=== PATIENT | female | born 1975 | race Two or more races ===

== ENCOUNTER 2024-09-24 15:01 | Emergency (ER) | payer MEDICAID, SELFPAY ==
[2024-09-24 15:02] VITALS: BMI 26.4
[2024-09-24 15:26] VITALS: BP 103/60; PULSE 82; RESP 16; TEMP 36.8; O2SAT 95; BMI 26.4
--- NOTE | 2024-09-24 15:30 | XR_ITS ---
Examination: Pelvic ultrasound, transabdominal, complete Technique: Transabdominal ultrasound of the pelvis performed using grayscale imaging Date and time of exam: September 24, 2024 1654 hrs. Indications: Pelvic pain and vaginal bleeding beginning 2 days ago Findings: Uterus 9.0 cm with multiple solid uterine masses, the largest in the posterior fundus 3.1 x 2.4 x 2.2 cm Endometrial stripe 12 mm Right ovary 3.5 cm arterial flow 14 mm follicular cyst Left ovary 2.2 cm arterial flow Impression: Multiple uterine areas of fibroid degeneration, the largest in the fundus of uterus 3.1 x 2.4 x 2.2 cm
--- NOTE | 2024-09-24 15:41 | PD.EDVAGBL ---
ED OB Contraction Preg RMI/HPI General Chief complaint: Vaginal Bleeding Stated complaint: Heavy vaginal bleeding x 1 day, 10 pads/day Time Seen by Provider: 09/24/24 15:07 Arrival date/time: 09/24/24 15:01 RME / HPI RME / HPI Narrative: 49-year-old female presents with complaint of heavy vaginal bleeding for 1 day. Patient states that she had not gotten her period for several months, and then she started having vaginal bleeding yesterday. She reports lightheadedness. States that she is changing pads approximately every 2 hours. Reports associated cramping pelvic pain. No fevers. No syncope. No chest pain. No shortness of breath. Related Data Previous Rx's ?Medication ?Instructions ?Recorded diphenhydramine HCl 25 mg capsule 25 mg PO Q6H PRN allergy symptoms 10/25/20 (Benadryl) #10 caps diphenhydramine HCl 50 mg capsule 50 mg PO TID PRN allergic reaction 09/05/22 #20 caps Allergies Allergy/AdvReac Type Severity Reaction Status Date / Time NKA* Allergy Uncoded 03/01/13 13:05 Review of Systems Review of Systems Systems Reviewed: All systems reviewed, normal except as documented ED Exam Narrative Physical exam: Constitutional: no acute distress, age appropriate, non-toxic Eyes: PERRL, conjunctivae w/o pallor, EOMI HENT: normocephalic, atraumatic. Oral mucosa moist Respiratory Effort: no stridor, effort normal, no retractions Breath sounds: Clear bilaterally; No rales, No rhonchi, No wheezing Cardiovascular: regular rhythm, S1 and S2 normal, no murmur Abdominal: soft; non-distended, non-tender Musculoskeletal: no deformities, no swelling, no LE edema Skin: warm, dry; No rash Neurology: alert, oriented X 4. Normal gait. Moves all extremities spontaneously. Psychology: cooperative, normal mood Course Quality Measures none Orders Category Date Time Status US pelvic complete Stat Exams 09/24/24 15:30 Completed CBC Stat Lab 09/24/24 16:01 Completed CMP [Comprehensive Metabolic Panel] Stat Lab 09/24/24 16:01 Completed HCG,Qualitative Serum Stat Lab 09/24/24 16:01 Completed Type and Screen Stat Lab 09/24/24 16:01 Completed Urinalysis Stat Lab 09/24/24 16:12 Completed Acetaminophen Tab [Tylenol ES Tab] Med 09/24/24 15:30 Discontinued 1,000 mg PO X1 ONE Ibuprofen Tab [Motrin Tab] Med 09/24/24 15:30 Discontinued 600 mg PO X1 ONE Vital Signs Vital signs: Vital Signs Temperature 98.3 F 09/24/24 15:26 Pulse Rate 82 09/24/24 15:26 Respiratory Rate 16 09/24/24 15:26 Blood Pressure 103/60 09/24/24 15:26 Pulse Oximetry (%) 95 09/24/24 15:26 Oxygen Delivery Method Room Air 09/24/24 15:26 Vaginal Bleeding MDM Narrative MDM Narrative: 49-year-old female presents with vaginal bleeding. Differential diagnoses include miscarriage, ectopic , dysfunctional uterine bleeding, fibroids, anemia Labs reassuring?hemoglobin is normal. hCG is negative so do not suspect miscarriage or ectopic . Uterine fibroids present on ultrasound. Patient counseled to follow-up with [facility]. Return to ED precautions given. Patient data External records reviewed:: [facility] previous records Clinical information provided by:: patient Social determinants that could affect healthcare access:: none Patient has the following chronic illnesses:: None How is presenting disease/condition affected by chronic disease/condition?: no chronic disease Evaluation data The following diagnostics were reviewed and interpreted by me:: lab results and radiology exam(s) Lab and/or radiology exams considered but not ordered:: None Interpretation Summary: Hemoglobin stable Examination: Pelvic ultrasound, transabdominal, complete Technique: Transabdominal ultrasound of the pelvis performed using grayscale imaging Date and time of exam: September 24, 2024 1654 hrs. Indications: Pelvic pain and vaginal bleeding beginning 2 days ago Findings: Uterus 9.0 cm with multiple solid uterine masses, the largest in the posterior fundus 3.1 x 2.4 x 2.2 cm Endometrial stripe 12 mm Right ovary 3.5 cm arterial flow 14 mm follicular cyst Left ovary 2.2 cm arterial flow Impression: Multiple uterine areas of fibroid degeneration, the largest in the fundus of uterus 3.1 x 2.4 x 2.2 cm Medications / Prescriptions Medications or Prescriptions considered but not ordered:: N/A Medication administrations:: Medication Administration History Discontinued Medications Acetaminophen (Acetaminophen 500 Mg Tablet) 1,000 mg PO X1 ONE Stop: 09/24/24 15:31 Last Admin: 09/24/24 15:53 Dose: 1,000 mg Documented By: Ibuprofen (Ibuprofen Tab 600 Mg Tablet) 600 mg PO X1 ONE Stop: 09/24/24 15:31 Last Admin: 09/24/24 15:53 Dose: 600 mg Documented By: See above Consultations Consultation(s) initiated? (list below): No Diagnosis Vaginal Bleeding Differential Diagnosis: missed , threatened , dysfunctional uterine bleeding, menometrorrhagia, ectopic without intrauterine and vaginal bleeding Most likely diagnosis given after review of the tests above:: Uterine fibroids Admission Indicated Admission indicated?: not indicated Admission Request Was there a request for admission?: No Disposition Plan Disposition Plan: Discharge Discharge Attestation Discharge Attestation: The patient and all family members were given an opportunity to ask questions and understood the discharge instructions. Discharge instructions specifically effects, indications for sooner follow up or return to the emergency department, and the expected course of current diagnosis. Patient condition: Stable Discharge Plan Plan Patient Disposition: HOME (Self Care) Prescriptions/Referrals Prescriptions/Med Rec: No Action diphenhydramine HCl [Benadryl] 25 mg capsule 25 mg PO Q6H PRN (Reason: allergy symptoms) Qty: 10 0RF diphenhydramine HCl 50 mg capsule 50 mg PO TID PRN (Reason: allergic reaction) Qty: 20 0RF Referrals: Rosalia Silverio PA-C [Primary Care Provider] - In 1 week Problem List Clinical Impression: Vaginal bleeding, Fibroid, uterine Patient/Caregiver Discharge Instructions Education Materials: ED Dysfunctional Uterine Bleeding, ED Uterine Fibroids Additional Instructions: Your ultrasound showed uterine fibroids, which can often cause vaginal bleeding. Your blood counts were normal today. Follow-up with your [facility] DELIV[facility] for treatment of uterine fibroids. Return to the ED for any new or worsening symptoms. [place] ultrason[place] mostr? fibromas uterinos, que a menudo pueden causar sangrado vaginal. Tus recuentos sangu?neos fueron normales hoy. Corinne un seguimiento con espana obstetra/ginec?logo para el tratamiento de los fibromas uterinos. Regrese al servicio de urgencias si presenta cualquier s?ntoma nuevo o que empeore. Print Language: [place] Island[place] Stand Alone Forms: Shae Award Info., Patient Portal Info Letter
[2024-09-24] MEDS: IBUPROFEN TAB 600 MG TABLET PO (15:53)
[2024-09-24] MEDS: ACETAMINOPHEN 500 MG TABLET 1000 MG PO (15:53)
[2024-09-24 16:17] LABS: Basophils % (Auto) 0 % (0-2.5); Eosinophils # (Auto) 0.1 Thou/mm3 (0.0-0.5); Eosinophils % (Auto) 1 % (0-10); Hematocrit 39.9 % (36.0-46.0); Hemoglobin 13.3 g/dL (12.0-16.0); Immature Granulocytes % (Auto) 0 % (0-0); Immature Granulocytes Auto 0.04 Thou/mm3 (0.00-0.00); Lymphocytes # (Auto) 2.3 Thou/mm3 (1.0-4.8); Lymphocytes % (Auto) 15 % (10-50); Mean Corpuscular HGB Conc 33.3 g/dl (31.0-37.0); Mean Corpuscular Hemoglobin 29.8 pg (25.0-35.0); Mean Corpuscular Volume 90 fL (80-100); Monocytes # (Auto) 0.8 Thou/mm3 (0.0-0.8); Monocytes % (Auto) 5 % (0-12); Neutrophils # (Auto) 11.4 Thou/mm3 (1.8-7.7); Neutrophils % (Auto) 78 % (37-80); Nucleated Red Blood Cell % 0 /100 WBC (0); Platelet Count 228 Thou/mm3 (140-440); Red Blood Count 4.46 Miln/mm3 (4.00-5.20); White Blood Count 14.6 Thou/mm3 (3.6-11.0)
[2024-09-24 16:27] LABS: Collection Type, Urine Clean Catch
[2024-09-24 16:38] LABS: Alanine Aminotransferase 9 U/L (10-49); Albumin, Serum 4.2 gm/dL (3.5-5.0); Albumin/Globulin Ratio 1.3 (1.2-2.2); Alkaline Phosphatase 117 U/L (46-116); Anion Gap 8 (7-16); Aspartate Amino Transferase 14 U/L (0-34); BUN/Creatinine Ratio 18 Ratio (12-20); Bilirubin,Total 0.7 mg/dL (0.3-1.2); Blood Urea Nitrogen 9 mg/dL (9-23); Calcium 9.2 mg/dL (8.3-10.6); Calcium (Corrected) 9.2 mg/dL (8.5-10.1); Carbon Dioxide 24.7 mMol/L (20.0-31.0); Chloride 105 mMol/L (98-107); Creatinine (Component) 0.5 mg/dL (0.6-1.3); Estimated Creatinine Clearance 129.1 mL/min (>60); Globulin 3.3 gm/dL (2.3-3.5); Glucose 97 mg/dL (74-106); Osmolality,Calculated 274 (275-295); Potassium 3.9 mMol/L (3.4-5.1); Sodium 138 mMol/L (136-145); Total Protein 7.5 gm/dL (5.7-8.2); eGFR > 60 See Note
[2024-09-24 16:47] LABS: HCG,Qualitative Serum Negative
[2024-09-24 17:01] LABS: Bilirubin,Urine Negative (Negative); Blood,Urine 3+ (Negative); Glucose, Urine Negative (Negative); Ketones,Urine 1+ (Negative); Leukocyte Esterase,Urine Negative (Negative); Nitrite,Urine Negative (Negative); PH,Urine 5.5 (5.0-7.0); Protein,Urine 1+ (Neg - Trace); RBC,Urine 14 /hpf (0-3); Specific Gravity,Urine 1.028 (1.001-1.035); Squamous Epithelial Cell,Urine 2 /hpf (0-5); Urobilinogen,Urine Negative mg/dL (0.0-1.0); WBC,Urine 7 /hpf (0-5)
[2024-09-24 17:05] LABS: Clarity,Urine Hazy (Clear/Hazy); Color,Urine Lt Yellow (Lt Yel-Yel)
[2024-09-24 19:59] VITALS: RESP 18
== END 2024-09-24 20:00 | disposition home or self-care (01) ==
PROVIDERS: Physician Assistant; Emergency Provider Emergency Medicine; PCP Physician Assistant Medical
DX: D25.9 Leiomyoma of uterus, unspecified (principal); N93.9 Abnormal uterine and vaginal bleeding, unspecified
CPT/HCPCS: 36415; 76856; 80053; 81001; 84703; 85025; 86850; 86900; 86901; 99284; A9270

== ENCOUNTER → 2025-06-13 | Outpatient (CLI) | payer MEDICAID, SELFPAY ==
--- NOTE | 2025-06-13 | XR_ITS ---
EXAMINATION: Bilateral knees 4 views TECHNIQUE: AP lateral right and left knees 4 views Date and time: June 13, 2025, 12:47 p.m. INDICATIONS: Bilateral knee pain beginning 4 days ago. FINDINGS: Moderate osteopenia. Mild narrowing medial joint spaces No fractures or dislocations IMPRESSION: Mild narrowing medial joint spaces
== END | disposition home or self-care (01) ==
DX: M25.862 Other specified joint disorders, left knee (principal); M25.861 Other specified joint disorders, right knee
CPT/HCPCS: 73560